=== PATIENT | female | born 1985 | race Caucasian/White ===

== ENCOUNTER 2017-07-08 06:23 | Emergency (ER) | payer MEDICAID ==
[2017-07-08 06:29] VITALS: BP 103/62; PULSE 77; RESP 14; TEMP 98.6; O2SAT 96
--- NOTE | 2017-07-08 07:16 | EDPHY ---
H & P Time Seen by Provider: 07/08/17 06:59 HPI/ROS: CHIEF COMPLAINT: Right flank pain HISTORY OF PRESENT ILLNESS: Patient is a history of kidney stones 14 years ago. At 5:20 a.m. today she awakened feeling like she had strained her back. The pain in her right flank worsened and radiated to her right lower abdomen with dysuria and urinary frequency and urgency. She took an ibuprofen and on the way and symptoms started to get better. She urinated in the emergency department and thinks she might have passed a kidney stone which is been preserved in a cup at the bedside. She feels a lot better now. No nausea or vomiting or fever or recent fall injury or trauma. REVIEW OF SYSTEMS: Eye: no change in vision ENT: no sore throat Cardiac: no chest pain or syncope Pulmonary: no cough or SOB Abdomen: HPI Musculoskeletal: no back pain Skin: no rash Neuro: no headache Constitutional: no fever : HPI A comprehensive 10 point review of systems is otherwise negative aside from elements mentioned in the history of present illness. PAST MEDICAL HISTORY: Breast augmentation, kidney stones, UTI, asthma Social history: , no PCP General Appearance: Alert and conversant, cooperative. Eyes: No scleral icterus. ENT, Mouth: Normal mucous membranes. Respiratory: Normal respiratory effort, breath sounds equal, lungs are clear to auscultation. Cardiovascular: Regular rate and rhythm. Gastrointestinal: Abdomen is soft and non tender. Neurological: Alert and oriented x3. Normally conversant. Face symmetric, normal movement and sensation in all extremities. Skin: Warm and dry, no rashes. No zoster. Musculoskeletal: No CVA tenderness either side. Psychiatric: Not agitated. Emergency Department course/MDM: Urine dip positive for blood. Sent for micro to evaluate for infection. History would be most likely that she passed a right-sided kidney stone while in the emergency department. Microscopic confirms hematuria without evidence of infection Smoking Status: Never smoked Constitutional: Initial Vital Signs Temperature (C) 37 C 07/08/17 06:25 Heart Rate 77 07/08/17 06:25 Respiratory Rate 14 07/08/17 06:25 Blood Pressure 103/62 07/08/17 06:25 O2 Sat (%) 96 07/08/17 06:25 O2 Delivery Mode Room Air Allergies/Adverse Reactions: No Known Allergies Allergy (Unverified 07/08/17 06:25) Home Medications: Medication Instructions Recorded NK [No Known Home Meds] 07/08/17 Medical Decision Making Differential Diagnosis: Differential diagnosis considered for flank pain including but not limited to musculoskeletal causes, kidney stone, pyelonephritis, shingles, and intra- abdominal causes such as diverticulitis and appendicitis. - Data Points Laboratory Results: 07/08/17 06:50 Urine RBC 50-182 /hpf H /hpf (0-3) Urine WBC 1-3 /hpf /hpf (0-3) Ur Epithelial Cells TRACE /lpf /lpf (NONE-1+) Urine Mucus 4+ /lpf H /lpf (NONE-1+) Departure - Departure Disposition: Home, Routine, Self-Care Clinical Impression: Renal colic on right side Condition: Good Instructions: Renal Colic (ED) Additional Instructions: Urine shows red blood cells and not infection. Most likely you passed a kidney stone. Referrals: Ezekiel Dougherty DO [Doctor of Osteopathy] - As per Instructions (injection molding engineer PCP for primary care)
[2017-07-08 07:38] LABS: MUCUS 4+ /lpf (NONE-1+); RBC,URINE 50-182 /hpf (0-3)
== END 2017-07-08 07:49 | disposition home or self-care (01) ==
DX: N23 Unspecified renal colic (principal); J45.909 Unspecified asthma, uncomplicated

== ENCOUNTER 2017-12-20 00:56 | Emergency (ER) | payer MEDICAID ==
[2017-12-20 01:08] VITALS: RESP 16; TEMP 97.7; O2SAT 95
--- NOTE | 2017-12-20 01:23 | EDPHY ---
H & P Stated Complaint: Poss UTI started at 2200 HPI/ROS: HPI CHIEF COMPLAINT: "I think I have a urinary tract infection" HISTORY OF PRESENT ILLNESS: This patient is a 32-year-old female she presents emergency room stating that she thinks she has a urinary tract infection. She reports at 10 o'clock last night or approximately 3 and 0.5 hr ago she developed sudden-onset dysuria and urgency to go. She states she had burning when she urinates as well as some hematuria. Denies any nausea or fever, denies back pain or vomiting. States pain is located directly suprapubic 12/03. She has had urinary tract infections in the past. She denies being or vaginal discharge. She distally reports when she gets antibiotics for her urinary tract infection she would like to be prescribed yeast medication. Past Medical History: Recurrent UTI. Past Surgical History: Denies recent surgery Social History: Denies drugs alcohol tobacco Family History: Noncontributory ROS REVIEW OF SYSTEMS: A comprehensive 10 point review of systems is otherwise negative aside from elements mentioned in the history of present illness. Exam Constitutional appears well nontoxic no acute distress, triage nursing summary reviewed, vital signs reviewed, awake/alert. Eyes normal conjunctivae and sclera, EOMI, PERRLA. HENT normal inspection, atraumatic, moist mucus membranes, no epistaxis, neck supple/ no meningismus, no raccoon eyes. Respiratory clear to auscultation bilaterally, normal breath sounds, no respiratory distress, no wheezing. Cardiovascular rate normal, regular rhythm, no murmur, no edema, distal pulses normal. Gastrointestinal very mild suprapubic tenderness, no rebound, no guarding, normal bowel sounds, no distension, no pulsatile mass. Genitourinary no CVA tenderness. No flank tenderness. Musculoskeletal no midline vertebral tenderness, full range of motion, no calf swelling, no tenderness of extremities, no meningismus, good pulses, neurovascularly intact. Skin pink, warm, & dry, no rash, skin atraumatic. Neurologic awake, alert and oriented x 3, AAOx3, moves all 4 extremities equally, motor intact, sensory intact, CN II-XII intact, normal cerebellar, normal vision, normal speech. Psychiatric normal mood/affect. Heme/Lymph/Immune no lymphadenopathy. Differential Diagnosis: Includes but is not limited to in a particular order UTI, cystitis, pyelonephritis Medical Decision Making: Plan for this patient check urinalysis. Will send urine culture. Will start on Keflex here in emergency room and peridium. Will prescribe Keflex prescription and peridium and Diflucan. Diflucan to be taken after completion of Keflex. Additionally recommend following up with her primary care doctor Additionally recommending her calling 24-48 hours for urine culture results. Additionally I recommend she return emergency room she develops worsening pain vomiting or fever. She understands Re-evaluation: 0200: Patient resting comfortably no acute distress. Urinalysis reviewed shows UTI. Urine culture sent. 1st dose of Keflex given in the emergency room as well as peridium. Prescription for Diflucan. Return precautions discussed with the patient she understands. Source: Patient - Personal History LMP (Females 10-55): 1-7 Days Ago Current Tetanus/Diphtheria Vaccine: No Current Tetanus Diphtheria and Acellular Pertussis (TDAP): No - Medical/Surgical History Hx Asthma: Yes Hx Chronic Respiratory Disease: No Hx Diabetes: No Hx Cardiac Disease: No Hx Renal Disease: No Hx Cirrhosis: No Hx Alcoholism: No Hx HIV/AIDS: No Hx Splenectomy or Spleen Trauma: No Other PMH: PSHx: breast augmentation. PMHx: kidney stone, multiple UTI, childhood asthma - Social History Smoking Status: Never smoked Constitutional: Initial Vital Signs Temperature (C) 36.5 C 12/20/17 01:05 Heart Rate 79 12/20/17 01:05 Respiratory Rate 16 12/20/17 01:05 Blood Pressure 105/68 12/20/17 01:05 O2 Sat (%) 95 12/20/17 01:05 O2 Delivery Mode Room Air Allergies/Adverse Reactions: latex Allergy (Verified 12/20/17 01:08) Home Medications: Medication Instructions Recorded Cephalexin [Keflex] 500 mg PO Q6H #28 cap 12/20/17 Fluconazole [Diflucan (*)] 150 mg PO ONCE #5 tab 12/20/17 Phenazopyridine HCl [Pyridium] 200 mg PO TID #15 tab 12/20/17 Medical Decision Making - Data Points Laboratory Results: 12/20/17 01:20 Urine Color RED Urine Appearance TURBID Urine pH 5.0 (5.0-7.5) Ur Specific [place] 1.025 (1.002-1.030) Urine Protein 2+ H (NEGATIVE) Urine Ketones NEGATIVE (NEGATIVE) Urine Blood 3+ H (NEGATIVE) Urine Nitrate NEGATIVE (NEGATIVE) Urine Bilirubin NEGATIVE (NEGATIVE) Urine Urobilinogen NEGATIVE EU EU (0.2-1.0) Ur Leukocyte Esterase 1+ H (NEGATIVE) Urine RBC 50-182 /hpf H /hpf (0-3) Urine WBC 50-182 /hpf H /hpf (0-3) Ur Epithelial Cells Not Reported Urine Mucus 4+ /lpf H /lpf (NONE-1+) Urine Glucose 1+ H (NEGATIVE) Medications Given: Discontinued Medications Cephalexin (Keflex 500 Mg Prepack#4) 1 btl TAKEHOME EDNOW ONE PRN Reason: Protocol Stop: 12/20/17 01:31 Last Admin: 12/20/17 01:46 Dose: 1 btl Cephalexin HCl (Keflex) 500 mg PO EDNOW ONE PRN Reason: Protocol Stop: 12/20/17 01:31 Last Admin: 12/20/17 01:45 Dose: 500 mg Phenazopyridine HCl (Pyridium) 200 mg PO EDNOW ONE Stop: 12/20/17 01:31 Last Admin: 12/20/17 01:45 Dose: Not Given Departure - Departure Disposition: Home, Routine, Self-Care Clinical Impression: UTI (urinary tract infection) Qualifiers: Urinary tract infection type: acute cystitis Hematuria presence: with hematuria Qualified Code(s): N30.01 - Acute cystitis with hematuria Condition: Good Instructions: Urinary Tract Infection in Women (ED) Additional Instructions: 1. Drink lots of fluids stay well-hydrated. 2. Antibiotics as prescribed. 3. Return if worsening symptoms questions or concerns includes worsening pain, fever, back pain, vomiting 4. Take your yeast medication after completion of your antibiotic. Referrals: MELANIA DESHPANDE [Other] - As per Instructions Prescriptions: Cephalexin [Keflex] 500 mg PO Q6H #28 cap Fluconazole [Diflucan (*)] 150 mg PO ONCE #5 tab Phenazopyridine HCl [Pyridium] 200 mg PO TID #15 tab
[2017-12-20] MEDS ORDERED: CEPHALEXIN 500 MG CAP PO ONE (01:30)
[2017-12-20] MEDS ORDERED: CEPHALEXIN 500MG PREPACK#4 BTL TAKEHOME ONE (01:30)
[2017-12-20] MEDS ORDERED: PHENAZOPYRIDINE HCL 200 MG TAB PO ONE (01:30)
[2017-12-20 02:13] VITALS: BP 108/68; PULSE 75
== END 2017-12-20 02:15 | disposition home or self-care (01) ==
DX: N30.01 Acute cystitis with hematuria (principal); J45.909 Unspecified asthma, uncomplicated; B96.20 Unspecified Escherichia coli [E. coli] as the cause of diseases classified elsewhere